=== PATIENT | female | born 1960 | race Caucasian/White ===

== ENCOUNTER 2018-11-02 21:49 | Emergency (ER) | payer BC ==
[~2018-11-02] VITALS: Ht 170.2 cm; Wt 76.7 kg
--- NOTE | 2018-11-02 22:46 | NUR ---
TO ROOM FROM LOBBY. NAD. AMBULATORY C STEADY GAIT.
--- NOTE | 2018-11-02 22:52 | NUR ---
PT PRESENTS TO ED W/ AN "ATTACK". PT STATES AN ATTACK IS DIFFUSE ABD PAIN AND SWELLING THAT LASTS FOR "HOURS TO DAYS" RADIATING TO EPIGASTRIC AND BACK. STATES MULTIPLE OF THESE ATTACK OVER LAST YEAR. STATES SEEING GI SPECIALIST AND CAUTIONED TO COME TO THE ED DURING AN ATTACK TO BE "SCANNED." PT STATES ALL SYMPTOMS SUBSIDED AT THIS TIME. MONITORING APPLIED. VSS. CALL LIGHT WITHIN REACH. AWAITING MD ASSESSMENT.
[2018-11-03 00:11] VITALS: BP 118/71
[2018-11-03 00:29] LABS: BASOPHILS # (AUTO) 0.03 x10^3/uL (0-0.1); BASOPHILS % (AUTO) 0 % (0-1); EOSINOPHILS # (AUTO) 0.12 x10^3/uL (0-0.4); EOSINOPHILS % (AUTO) 1 % (1-7); LYMPHOCYTES # (AUTO) 1.95 x10^3/uL (1-3.4); LYMPHOCYTES % (AUTO) 15 % (22-44); MD NO; MEAN CORPUSCULAR HEMOGLOBIN 30.4 pg (27.0-34.8); MEAN CORPUSCULAR HGB CONC 33.6 g/dL (32.4-35.8); MEAN CORPUSCULAR VOLUME 90.4 fL (80-100); MEAN PLATELET VOLUME 7.9 fL (7.4-10.4); MONOCYTES # (AUTO) 0.62 x10^3/uL (0.2-0.8); MONOCYTES % (AUTO) 5 % (2-9); NEUTROPHILS # (AUTO) 9.99 x10^3/uL (1.8-6.8); NEUTROPHILS % (AUTO) 79 % (42-75); PLATELET COUNT 285 x10^3/uL (130-400); RED BLOOD COUNT 4.55 x10^6/uL (3.82-5.3); RED CELL DISTRIBUTION WIDTH 12.6 % (9.6-15.2)
[2018-11-03 00:34] LABS: ALANINE AMINOTRANSFERASE 150 U/L (12-78); ALBUMIN 3.4 g/dL (3.4-5.0); ANION GAP 6 mmol/L (5-15); CALCIUM 9.6 mg/dL (8.5-10.1); CHLORIDE 107 mmol/L (98-107); CREATININE 0.86 mg/dL (0.55-1.02)
[2018-11-03 00:39] LABS: ALKALINE PHOSPHATASE 106 U/L (45-117); BILIRUBIN,TOTAL 0.3 mg/dL (0.2-1.0); TOTAL PROTEIN 6.9 g/dL (6.4-8.2); TROPONIN I < 0.015 ng/mL (0.000-0.045)
== END 2018-11-03 01:58 | disposition home or self-care (01) ==
LOC: ED 23:59
DX: K21.9 Gastro-esophageal reflux disease without esophagitis (principal); K22.4 Dyskinesia of esophagus
CPT/HCPCS: 36415; 74022; 80053; 83690; 84484; 85025; 93005; 99281; 99284